=== PATIENT | female | born 1935 | race Caucasian/White ===

== ENCOUNTER 2017-01-12 08:00 | Outpatient (CLI) | payer MEDICARE, OTHER ==
[2017-01-12 19:25] LABS: BASOPHILS # (AUTO) 0.1 10^3/uL (0.0-0.1); BASOPHILS % (AUTO) 0.8 %; EOSINOPHILS # (AUTO) 0.1 10^3/uL (0.0-0.7); EOSINOPHILS % (AUTO) 1.5 %; HCT - HEMATOCRIT 38.7 % (37.0-47.0); LYMPHOCYTES # (AUTO) 1.5 10^3/uL (1.5-3.5); LYMPHOCYTES % (AUTO) 21.1 %; MEAN CORPUSCULAR HEMOGLOBIN 31.7 pg (27.0-31.0); MEAN CORPUSCULAR HGB CONC 33.5 g/dL (32.0-36.0); MEAN CORPUSCULAR VOLUME 94.7 fL (81.0-99.0); MEAN PLATELET VOLUME 8.2 fL (7.9-10.8); MONOCYTES # (AUTO) 0.5 10^3/uL (0.0-1.0); MONOCYTES % (AUTO) 7.7 %; NEUTROPHILS # (AUTO) 4.9 10^3/uL (1.5-6.6); NEUTROPHILS % (AUTO) 68.9 %; RED BLOOD COUNT 4.08 10^6/uL (4.20-5.40); RED CELL DISTRIBUTION WIDTH 13.1 % (12.0-15.0); UNCORRECTED WHITE BLOOD COUNT 7.1 x10^3/uL; WHITE BLOOD COUNT 7.1 x10^3/uL (4.8-10.8)
[2017-01-12 19:45] LABS: ALBUMIN/GLOBULIN RATIO 1.4 (1.0-2.2); BILIRUBIN,TOTAL 0.6 mg/dL (0.2-1.0); BUN - BLOOD UREA NITROGEN 15 mg/dL (6-20); CALCIUM 8.1 mg/dL (8.5-10.3); CARBON DIOXIDE - CO2 27 mmol/L (21-32); CHLORIDE 105 mmol/L (101-111); CREATININE 1.1 mg/dL (0.4-1.0); GFR - MDRD 48 (>89); GLUCOSE 90 mg/dL (70-100); POTASSIUM 3.2 mmol/L (3.5-5.0); SODIUM 141 mmol/L (135-145); TOTAL PROTEIN 6.7 g/dL (6.7-8.2)
[2017-01-12 19:52] LABS: THYROID STIMULATING HORMONE 0.66 uIU/mL (0.34-5.60)
== END 2017-01-12 08:01 | disposition home or self-care (01) ==
LOC: LAB.WCP 08:00
PROVIDERS: ATTEND Family Medicine
DX: R53.83 Other fatigue (principal); R41.3 Other amnesia
CPT/HCPCS: 36415; 80053; 82607; 84443; 85025

== ENCOUNTER 2017-03-25 15:59 | Outpatient (CLI) | payer MEDICARE, OTHER | END 2017-03-25 16:00 | disposition critical access hospital (66) | LOC: EMS 15:59 | PROVIDERS: ATTEND Surgery | DX: S01.112A Laceration without foreign body of left eyelid and periocular area, initial encounter (principal); W01.0XXA Fall on same level from slipping, tripping and stumbling without subsequent striking against object, initial encounter; Y92.038 Other place in apartment as the place of occurrence of the external cause | CPT/HCPCS: A0425; A0429 ==

== ENCOUNTER 2017-03-25 16:20 | Emergency (ER) | payer MEDICARE, OTHER ==
[2017-03-25] MEDS ORDERED: LIDOCAINE-EPINEPH-TETRACAINE 3 ML SYRINGE TOP STA (18:24)
[2017-03-25 19:05] VITALS: BP 163/88
--- NOTE | 2017-03-25 19:26 | CT Report ---
EXAM: CT HEAD EXAM DATE: 03/25/2017 06:46 PM. CLINICAL HISTORY: Fall. Left head injury. COMPARISON: 08/14/2007. TECHNIQUE: Multiaxial CT images were obtained from the foramen magnum to the vertex. Reformats: Coron al. IV contrast: None. In accordance with CT protocol optimization, one or more of the following dose reduction techniques w ere utilized for this exam: automated exposure control, adjustment of mA and/or KV based on patient s ize, or use of iterative reconstructive technique. FINDINGS: Parenchyma: No intraparenchymal hemorrhage. No evidence of mass, midline shift, or CT findings of acu te infarction. Moran-white differentiation is distinct. Mild chronic microangiopathic white matter ashwini nges are evident. Extraaxial Spaces: Normal for age. No subdural or epidural collections identified. Ventricles: The ventricles and cortical sulci are prominent, consistent with age-related tissue loss. Sinuses and orbits: Imaged paranasal sinuses, orbits, and mastoids show no significant abnormality. Bones: No evidence of fracture or calvarial defect. Other: Mild left foreign scalp hematoma. IMPRESSION: Generalized age-related cortical atrophic changes without evidence of acute intracranial abnormality. [facility] Referring Provider Line: [phone] SITE ID: [id number]
--- NOTE | 2017-03-25 19:29 | CT Report ---
EXAM: CT CERVICAL SPINE WITHOUT CONTRAST DATE: 03/25/2017 06:53 PM. HISTORY: Head injury with neck pain. COMPARISONS: None. TECHNIQUE: Thin-section axial images were acquired of the cervical spine without contrast. Post-proce ssing: Coronal and sagittal reformats. Other: None. In accordance with CT protocol optimization, one or more of the following dose reduction techniques w ere utilized for this exam: automated exposure control, adjustment of mA and/or KV based on patient s ize, or use of iterative reconstructive technique. FINDINGS: Alignment: No scoliosis or spondylolisthesis. Bones: No fracture or bone lesion. Interspace Levels/Facets: C1-C2: Anterior degenerative changes with surrounding mildly calcified pannus. C2-C3: Unremarkable. C3-C4: Moderate disk space narrowing. C4-C5: Advanced disk space narrowing with spurring. C5-C6: Advanced disk space narrowing with spurring and posterior disk/osteophyte protrusion. C6-C7: Advanced disk space narrowing with spurring. C7-T1: Unremarkable. Musculature: Normal. No fatty atrophy. Other: The paravertebral and prevertebral soft tissues are unremarkable. The lung apices are clear. IMPRESSION: 1. No acute cervical spine abnormalities. 2. Advanced multilevel degenerative disk disease. [facility] Referring Provider Line: [phone] SITE ID: [id number]
--- NOTE | 2017-03-25 19:32 | XRAY Report ---
EXAM: LEFT HAND RADIOGRAPHY EXAM DATE: 03/25/2017 06:56 PM. CLINICAL HISTORY: Hand injury after fall. COMPARISON: None. TECHNIQUE: 3 views. FINDINGS: Bones: Normal. No fractures or bone lesions. Joints: Spurring and sclerosis involving multiple IP joints, second through fourth MCP joints, first carpometacarpal joint, and scaphomultangular joint. No subluxations. Soft Tissues: Calcification in the triangular fibrocartilage. IMPRESSION: 1. No acute bony abnormalities identified. 2. Osteoarthritis. [facility] Referring Provider Line: [phone] SITE ID: [id number]
--- NOTE | 2017-03-25 19:51 | ED Physician Documentation ---
PD HPI Fall - Stated complaint Stated Complaint: GLF, EYE LAC, HAND LAC - Chief complaint Chief Complaint: Laceration - History obtained from History obtained from: Patient, Family - History of Present Illness Mechanism of injury: Tripped Where injury occurred: Home Timing - onset: Today (Just prior to arrival.) Injury(ies) location: Head, Left Hand Associated symptoms: No: LOC, Neck pain, Nausea / vomiting - Additional information Additional information: The patient is a pleasant 81-year-old female who tripped and fell on her driveway when getting out of her car less than one hour prior to arrival. She hit her head and her left hand. She denies loss of consciousness, and has been ambulatory since the incident occurred. She denies headache, neck pain, nausea or vomiting. Her medications include one baby aspirin daily. Tetanus status is up-to-date. Review of Systems Constitutional: denies: Fever Eyes: denies: Decreased vision Ears: denies: Tinnitus/ringing Nose: denies: Congestion Throat: denies: Sore throat Cardiac: denies: Chest pain / pressure Respiratory: denies: Dyspnea, Cough GI: denies: Abdominal Pain, Nausea, Vomiting : denies: Dysuria Skin: reports: Laceration (s) Musculoskeletal: reports: Extremity pain (left hand.). denies: Neck pain Neurologic: reports: Head injury. denies: Focal weakness, Numbness, Altered mental status, Headache, LOC PD PAST MEDICAL HISTORY - Past Medical History Respiratory: None Neuro: None Endocrine/Autoimmune: HyPOthyroidism Musculoskeletal: Chronic back pain - Present Medications Home Medications: Ambulatory Orders Medication Instructions Recorded Confirmed Aspirin 325 mg PO DAILY 03/25/17 Cholecalciferol (Vitamin D3) 3,000 03/25/17 [Vitamin D3] Diclofenac Sodium Dr [Voltaren] 75 mg PO BID 03/25/17 FLUoxetine [PROzac] 40 mg PO DAILY 03/25/17 Levothyroxine [Synthroid] 88 mcg PO DAILY 03/25/17 Losartan [Cozaar] 50 mg PO DAILY 03/25/17 Omeprazole [PriLOSEC] 20 mg PO DAILY 03/25/17 - Allergies Allergies/Adverse Reactions: Allergies Allergy/AdvReac Type Severity Reaction Status Date / Time No Known Drug Allergies Allergy Verified 03/25/17 16:27 - Living Situation Living Situation: reports: With spouse/s.o. Living Arrangement: reports: At home - Social History Does the pt smoke?: No - Immunizations Immunizations: TDAP current <10years PD ED PE NORMAL - Vitals Vital signs reviewed: Yes (hypertensive) - General General: Alert and oriented X 3, Well developed/nourished - HEENT HEENT: PERRL, EOMI, Ears normal, Pharynx benign, Other (2.5 cm laceration on the left side of the forehead, with a surrounding soft tissue crush injury. No bony step-off palpated.) - Neck Neck: No bony TTP, No JVD - Cardiac Cardiac: RRR - Respiratory Respiratory: No respiratory distress, Clear bilaterally, Other (No chest wall tenderness to palpation.) - Abdomen Abdomen: Soft, Non tender - Back Back: No spinal TTP - Derm Derm: No rash - Extremities Extremities: No deformity, Normal ROM s pain, No edema, Other (There is a large skin tear over the dorsum of the left hand, approximately 9 cm in length. She has full flexion and extension of the digits in her left hand, and no tenderness with axial loading on the digits. Distal neurovascular is intact.) - Neuro Neuro: Alert and oriented X 3, No motor deficit, No sensory deficit, Normal speech Eye Opening: Spontaneous Motor: Obeys Commands Verbal: Oriented GCS Score: 15 Results - Vitals Vitals: Oxygen O2 Source Room air - Rads (name of study) Head CT Radiology: Prelim report reviewed, EMP read contemporaneously, See rad report ( Generalized age-related cortical atrophic changes without evidence of acute intracranial abnormality.) CT Cervical Spine Radiology: Prelim report reviewed, EMP read contemporaneously, See rad report ( No acute cervical spine abnormalities. Advanced multilevel degenerative disc disease.) Left hand Radiology: Prelim report reviewed, EMP read contemporaneously, See rad report ( No acute bony abnormalities identified. Osteoarthritis.) Procedures - Laceration (location) forehead lac Length in cm: 2.5 Wound type: Irregular, Into subcut fat Neurovascular status: Sensory intact, Vascular intact Anesthesia: Lidocaine 1% with epi Wound Preparation: Hibiclens, Irrigated copiously NS, Wound explored. No: FB identified Skin layer closure: Nylon, Interrupted, Size #-0 - enter number (5), Sutures - enter # (5) Other: Patient tolerated well, No complications, Neurovascular intact, Dressing applied, Tetanus UTD Complexity: Simple left hand Length in cm: 9 Wound type: Flap Neurovascular status: Sensory intact, Motor intact, Vascular intact Tendon involvement: Tendon intact Anesthesia: LET Wound Preparation: Hibiclens, Irrigated copiously NS, Wound explored, To the base. No: FB identified Skin layer closure: Steri strips Other: Patient tolerated well, No complications, Neurovascular intact, Dressing applied, Tetanus UTD Complexity: Simple PD MEDICAL DECISION MAKING - ED course Complexity details: reviewed results, re-evaluated patient, considered differential, d/w patient, d/w family ED course: The patient's presentation is significant for a trip and fall, with associated injuries to the left forehead and the left hand. Head CT and cervical spine CT revealed no acute abnormalities. X-ray of the left hand reveals no acute bony abnormality. Treatment in the emergency department included suture repair of the forehead laceration after topical anesthesia using 1% lidocaine with epinephrine, and after thorough wound cleaning and exploration. The skin tear on the dorsum of the left hand was repaired with Steri-Strips after thorough cleaning. I discussed with the patient and her family members the expected course of healing, appropriate wound care and timing for suture removal, as well as potentially worrisome signs or symptoms that should prompt reevaluation in the emergency department. Departure - Departure Disposition: 01 Home, Self Care Clinical Impression: Fall Qualifiers: Encounter type: initial encounter Qualified Code(s): W19.XXXA - Unspecified fall, initial encounter Laceration of forehead Qualifiers: Encounter type: initial encounter Qualified Code(s): S01.81XA - Laceration without foreign body of other part of head, initial encounter Skin tear of left hand without complication Qualifiers: Encounter type: initial encounter Qualified Code(s): S61.412A - Laceration without foreign body of left hand, initial encounter Condition: Stable Instructions: ED Laceration All Follow-Up: Gorge Steel DO [Provider Admit Priv/Credential] - Comments: Keep the wounds clean, and apply gauze dressings daily. You can use Tylenol if needed for discomfort. Follow-up for suture removal in about 12 days. Call to schedule appointment. Return to the emergency department if you develop any sign of infection, increasing headache, or otherwise worsening symptoms. Discharge Date/Time: 03/25/17 20:05
== END 2017-03-25 20:05 | disposition home or self-care (01) ==
LOC: EDUNIT# → ED 16:20
DX: S01.81XA Laceration without foreign body of other part of head, initial encounter (principal); S61.412A Laceration without foreign body of left hand, initial encounter; W01.198A Fall on same level from slipping, tripping and stumbling with subsequent striking against other object, initial encounter; Y92.008 Other place in unspecified non-institutional (private) residence as the place of occurrence of the external cause; E03.9 Hypothyroidism, unspecified
CPT/HCPCS: 12011; 70450; 72125; 99283

== ENCOUNTER 2017-05-04 15:10 | Outpatient (CLI) | payer MEDICARE, OTHER ==
[2017-05-04 19:01] LABS: CALCIUM 9.3 mg/dL (8.5-10.3); CREATININE 1.1 mg/dL (0.4-1.0)
== END 2017-05-04 15:11 | disposition home or self-care (01) ==
LOC: LAB.WCP 15:10
PROVIDERS: ATTEND Family Medicine
DX: E87.6 Hypokalemia (principal)
CPT/HCPCS: 36415; 80048

== ENCOUNTER 2017-09-01 16:13 | Outpatient (CLI) | payer MEDICARE, OTHER | END 2017-09-01 16:14 | disposition critical access hospital (66) | LOC: EMS 16:13 | PROVIDERS: ATTEND Surgery | DX: R42 Dizziness and giddiness (principal); R53.1 Weakness; M54.2 Cervicalgia; W10.1XXA Fall (on)(from) sidewalk curb, initial encounter; Y92.038 Other place in apartment as the place of occurrence of the external cause | CPT/HCPCS: A0425; A0427 ==

== ENCOUNTER 2017-09-01 16:40 | Emergency (ER) | payer MEDICARE, OTHER ==
--- NOTE | 2017-09-01 17:00 | ED Physician Documentation ---
PD HPI HEAD INJURY - Stated complaint Stated Complaint: GLF, NECK PX - Chief complaint Chief Complaint: Trauma Hd/Nk - History obtained from History obtained from: Patient, Family, EMS - History of Present Illness Mechanism of head injury: Fell (She was out doing yard work and suddenly had a we inside she tripped and fell going down and drying her head and neck without loss of consciousness. She has not anticoagulated except for aspirin. No injuries below the neck.) Review of Systems Ten Systems: 10 systems reviewed and negative Constitutional: denies: Fever, Chills Cardiac: denies: Chest pain / pressure, Palpitations Respiratory: denies: Dyspnea, Cough PD PAST MEDICAL HISTORY - Past Medical History Respiratory: None Endocrine/Autoimmune: HyPOthyroidism Musculoskeletal: Chronic back pain - Present Medications Home Medications: Ambulatory Orders Medication Instructions Recorded Confirmed Aspirin 325 mg PO DAILY 03/25/17 Cholecalciferol (Vitamin D3) 3,000 03/25/17 [Vitamin D3] Diclofenac Sodium Dr [Voltaren] 75 mg PO BID 03/25/17 FLUoxetine [PROzac] 40 mg PO DAILY 03/25/17 Levothyroxine [Synthroid] 88 mcg PO DAILY 03/25/17 Losartan [Cozaar] 50 mg PO DAILY 03/25/17 Omeprazole [PriLOSEC] 20 mg PO DAILY 03/25/17 - Allergies Allergies/Adverse Reactions: Allergies Allergy/AdvReac Type Severity Reaction Status Date / Time No Known Drug Allergies Allergy Verified 03/25/17 16:27 - Social History Does the pt smoke?: No Smoking Status: Never smoker - Immunizations Immunizations: TDAP current <10years PD ED PE NORMAL - Vitals Vital signs reviewed: Yes - General General: Alert and oriented X 3, No acute distress - HEENT HEENT: PERRL, EOMI - Neck Neck: Other (She is in a c-collar which is maintained pending imaging, she does have mild upper C-spine tenderness.) - Cardiac Cardiac: RRR, No murmur - Respiratory Respiratory: No respiratory distress, Clear bilaterally - Abdomen Abdomen: Normal bowel sounds, Soft, Non tender - Back Back: No CVA TTP, No spinal TTP - Derm Derm: Normal color, Warm and dry - Extremities Extremities: No deformity, No tenderness to palpate - Neuro Neuro: Alert and oriented X 3, No motor deficit, No sensory deficit, Normal speech Results - Vitals Vitals: Vital Signs - 24 hr 09/01/17 09/01/17 16:42 16:57 Temperature 36.5 C Heart Rate 50 L 70 Respiratory 18 18 Rate Blood Pressure 105/66 110/66 O2 Saturation 97 98 Oxygen O2 Source Room air - Rads (name of study) CT Cspine Radiology: EMP read contemporaneously (DJD no frx) Ct head Radiology: EMP read contemporaneously (NAD) PD MEDICAL DECISION MAKING - ED course ED course: 82-year-old woman after ground-level fall at home while gardening, does have some neck tenderness and CT imaging of the head and neck were done without relevant findings. She declined prescription pain medication and had no other complaints. - Sepsis Event Vital Signs: Vital Signs - 24 hr 09/01/17 09/01/17 16:42 16:57 Temperature 36.5 C Heart Rate 50 L 70 Respiratory 18 18 Rate Blood Pressure 105/66 110/66 O2 Saturation 97 98 Oxygen O2 Source Room air Departure - Departure Disposition: 01 Home, Self Care Clinical Impression: Fall Qualifiers: Encounter type: initial encounter Qualified Code(s): W19.XXXA - Unspecified fall, initial encounter Injury of head and neck Qualifiers: Encounter type: initial encounter Qualified Code(s): S09.90XA - Unspecified injury of head, initial encounter; S19.9XXA - Unspecified injury of neck, initial encounter; S19.9XXA - Unspecified injury of neck, initial encounter Condition: Good Record reviewed to determine appropriate education?: Yes Instructions: ED Head Injury Closed Comments: Call your doctor to arrange a follow-up appointment, make the next available appointment. In the interim, return anytime if worse or if new symptoms develop.
--- NOTE | 2017-09-01 18:05 | CT Report ---
Procedure Date: 09/01/2017 Accession Number: [id number] / [id number] Procedure: CT - Head W/O CPT Code: FULL RESULT: EXAM: CT HEAD EXAM DATE: 09/01/2017 05:27 PM. CLINICAL HISTORY: Head/neck inj, glf. COMPARISON: CERVICAL SPINE W/O 03/25/2017 HEAD W/O 03/25/2017. TECHNIQUE: Multiaxial CT images were obtained from the foramen magnum to the vertex. Reformats: Coronal. IV contrast: None. In accordance with CT protocol optimization, one or more of the following dose reduction techniques were utilized for this exam: automated exposure control, adjustment of mA and/or KV based on patient size, or use of iterative reconstructive technique. FINDINGS: Parenchyma: No intracranial hemorrhage. No evidence of mass, midline shift or CT findings of acute territorial infarction. Moran-white differentiation is distinct. Hypoattenuation to the deep white matter likely reflects chronic mitral angiopathic ischemic change. 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 Extraaxial Spaces: No subdural or epidural collections identified. Ventricles: No hydrocephalus Sinuses: Imaged paranasal sinuses, orbits, and mastoids show no significant abnormality. Bones: No evidence of acute fracture or calvarial defect. Other: None. IMPRESSION: No acute intracranial abnormalities. [facility]
--- NOTE | 2017-09-01 18:18 | CT Report ---
Procedure Date: 09/01/2017 Accession Number: [id number] / [id number] Procedure: CT - Cervical Spine W/O CPT Code: FULL RESULT: EXAM: CT CERVICAL SPINE WITHOUT CONTRAST DATE: 09/01/2017 05:42 PM. HISTORY: Head/neck inj, glf. COMPARISONS: 03/25/17. TECHNIQUE: Thin-section axial images were acquired of the cervical spine without contrast. Post-processing: Coronal and sagittal reformats. Other: None. In accordance with CT protocol optimization, one or more of the following dose reduction techniques were utilized for this exam: automated exposure control, adjustment of mA and/or KV based on patient size, or use of iterative reconstructive technique. FINDINGS: Alignment: Within normal limits. No scoliosis or spondylolisthesis. Bones: No acute fractures. Severe multilevel disk space narrowing, worse from C4-C7. Effacement of the anterior thecal sac by multilevel posterior disk osteophyte complexes without high-grade spinal canal narrowing. Spinal Canal: Effacement of the anterior thecal sac by multilevel posterior disk osteophyte complexes without high-grade spinal canal narrowing. Other: The paravertebral and prevertebral soft tissues are unremarkable. Visualized thyroid is unremarkable. The partially imaged lung apices are clear. IMPRESSION: No acute fractures. Redemonstration severe multilevel degenerative disk disease. [facility]
[2017-09-01 18:45] VITALS: BP 139/84
== END 2017-09-01 18:44 | disposition home or self-care (01) ==
LOC: EDUNIT# → ED 16:40
DX: S09.90XA Unspecified injury of head, initial encounter (principal); S19.9XXA Unspecified injury of neck, initial encounter; W01.0XXA Fall on same level from slipping, tripping and stumbling without subsequent striking against object, initial encounter; Y93.H2 Activity, gardening and landscaping; Y92.096 Garden or yard of other non-institutional residence as the place of occurrence of the external cause; Z79.82 Long term (current) use of aspirin
CPT/HCPCS: 70450; 72125; 99283

== ENCOUNTER 2017-10-12 13:52 | Outpatient (CLI) | payer MEDICARE, OTHER ==
--- NOTE | 2017-10-12 15:40 | XRAY Report ---
Procedure Date: 10/12/2017 Accession Number: [id number] / [id number] Procedure: XRN - Knee 3 View RT CPT Code: FULL RESULT: EXAM: RIGHT KNEE RADIOGRAPHY. EXAM DATE: 10/12/2017 02:16 PM. CLINICAL HISTORY: Knee pain, right. COMPARISON: None. TECHNIQUE: 3 views. FINDINGS: Examination is limited by suboptimal lateral view. Bones: No fractures or bone lesions. Joints: Moderate tricompartmental degenerative changes with joint space loss and marginal osteophytosis. No joint effusion. Soft Tissues: Normal. No soft tissue swelling. IMPRESSION: Tricompartmental osteoarthrosis. [facility]
== END 2017-10-12 13:53 | disposition home or self-care (01) ==
LOC: DI.N 13:52
PROVIDERS: ATTEND Family Medicine
DX: M25.561 Pain in right knee (principal); M17.11 Unilateral primary osteoarthritis, right knee

== ENCOUNTER 2018-05-26 08:00 | Outpatient (CLI) | payer MEDICARE, OTHER | END 2018-05-26 23:59 | LOC: LAB.WCP 08:00 | PROVIDERS: ATTEND Nurse Practitioner | DX: N39.0 Urinary tract infection, site not specified (principal) | CPT/HCPCS: 87086 ==

== ENCOUNTER 2018-05-28 17:02 | Emergency (ER) | payer MEDICARE, OTHER ==
--- NOTE | 2018-05-28 17:26 | ED Physician Documentation ---
History of Present Illness - Stated complaint Stated Complaint: FEMALE - Chief complaint Chief Complaint: General - History obtained from History obtained from: Patient - Additonal information Additional information: Patient is a 82-year-old female presenting with concern for pelvic pressure and pain for which she has seen her primary care physician. Her primary care physician took a urine sample and start her on ciprofloxacin for a possible urinary tract infection, although patient denies hematuria, dysuria, or suprapubic abdominal pain. Primary care physician reportedly also had concern f or possible bladder prolapse, but today, patient believes she explains vaginal bleeding.Patient denies other abdominal pain, vaginal discharge, fever. Patient is currently awaiting a referral for PUBLIC RELATIONS COORDINATOR. No improving or worsening factors noted. Review of Systems Constitutional: denies: Fever : reports: Vaginal bleeding PD PAST MEDICAL HISTORY - Past Medical History Respiratory: None Endocrine/Autoimmune: HyPOthyroidism Musculoskeletal: Chronic back pain - Present Medications Home Medications: Ambulatory Orders Medication Instructions Recorded Confirmed Cholecalciferol (Vitamin D3) 3,000 03/25/17 [Vitamin D3] RX: Aspirin 325 mg PO DAILY 03/25/17 RX: Diclofenac Sodium Dr [Voltaren] 75 mg PO BID 03/25/17 RX: FLUoxetine [PROzac] 40 mg PO DAILY 03/25/17 RX: Levothyroxine [Synthroid] 88 mcg PO DAILY 03/25/17 RX: Losartan [Cozaar] 50 mg PO DAILY 03/25/17 RX: Omeprazole [PriLOSEC] 20 mg PO DAILY 03/25/17 - Allergies Allergies/Adverse Reactions: Allergies Allergy/AdvReac Type Severity Reaction Status Date / Time No Known Drug Allergies Allergy Verified 03/25/17 16:27 - Social History Does the pt smoke?: No Smoking Status: Never smoker - Immunizations Immunizations: TDAP current <10years PD ED PE NORMAL - General General: Alert and oriented X 3, No acute distress, Well developed/nourished - HEENT HEENT: Atraumatic - Cardiac Cardiac: RRR, No murmur - Respiratory Respiratory: No respiratory distress, Clear bilaterally - Abdomen Abdomen: Normal bowel sounds, Soft, Non tender, Non distended - Female Female : Other (External vaginal exam unremarkable with no obvious lesions, masses, or rash. Extremely pronounced cervical prolapse through vaginal vault with dark colored, friable cervical mucosa present.) - Derm Derm: Normal color, Warm and dry, No rash - Extremities Extremities: No deformity, No tenderness to palpate - Neuro Neuro: Alert and oriented X 3, No motor deficit, No sensory deficit - Psych Psych: Normal mood, Normal affect Results - Vitals Vitals: Vital Signs - 24 hr 05/28/18 05/28/18 17:11 18:21 Temperature 36.3 C L Heart Rate 57 L 70 Respiratory 14 16 Rate Blood Pressure 98/79 149/98 H O2 Saturation 98 96 Oxygen O2 Source Room air PD MEDICAL DECISION MAKING - ED course Complexity details: re-evaluated patient, considered differential, d/w patient, d/w family, d/w home care consultant ED course: Patient presenting with new onset vaginal bleeding. Patient was recently seen by her primary care physician and diagnosed with a UTI following a urine sample and started on ciprofloxacin. Patient has been compliant with this medication and denies urinary symptoms and at this time, do not have high suspicion for refractory UTI or pyelonephritis. Patient reports possible bladder prolapse, but on exam, visualized significant cervical prolapse and feel this is likely the cause of her discomfort and vaginal bleeding. Do not have high suspicion for STDs, other vaginal infections, ovarian pathology such as cyst or torsion at this time. Based on symptoms and exam, also have low suspicion for acute intra-abdominal pathology currently.Do not feel patient requires further interventions in the ED.Spoke with PUBLIC RELATIONS COORDINATOR healthcare economics consultant, who said that patient may call the office tomorrow to schedule follow-up appointment later in the week. Advised patient and family of this plan, as well as strict return precautions. Patient family voiced understanding and are comfortable with discharge. Departure - Departure Disposition: 01 Home, Self Care Clinical Impression: Cervical prolapse Condition: Good Follow-Up: Beni Gavin MD [Provider Admit Priv/Credential] - Tomorrow Comments: Please continue any home medications as previously instructed, including antibiotic for possible bladder infection. Recommend use of menstrual pad as needed to help control bleeding. Please contact PUBLIC RELATIONS COORDINATOR tomorrow to set up outpatient appointment for later this week. Return to ED sooner if explains worsening symptoms or other concerns. Discharge Date/Time: 05/28/18 18:23
[2018-05-28 18:22] VITALS: BP 149/98
== END 2018-05-28 18:23 | disposition home or self-care (01) ==
LOC: ED 17:02
DX: N81.2 Incomplete uterovaginal prolapse (principal); Z79.82 Long term (current) use of aspirin
CPT/HCPCS: 99283

== ENCOUNTER 2018-09-04 10:29 | Outpatient (CLI) | payer MEDICARE, OTHER | END 2018-09-04 23:59 | disposition home or self-care (01) | LOC: LAB.R 10:29 | PROVIDERS: ATTEND Family Medicine | DX: N39.0 Urinary tract infection, site not specified (principal) | CPT/HCPCS: 87086; 87181 ==

== ENCOUNTER 2019-04-18 08:00 | Outpatient (CLI) | payer MEDICARE, OTHER | END 2019-04-18 23:59 | disposition home or self-care (01) | LOC: LAB.R 08:00 | PROVIDERS: ATTEND Family Medicine | DX: N39.0 Urinary tract infection, site not specified (principal) | CPT/HCPCS: 81002; 87086; 87181 ==

== ENCOUNTER 2019-05-17 08:00 | Outpatient (CLI) | payer MEDICARE, OTHER ==
[2019-05-17 18:24] LABS: BASOPHILS # (AUTO) 0.1 10^3/uL (0.0-0.1); BASOPHILS % (AUTO) 1.1 %; EOSINOPHILS # (AUTO) 0.1 10^3/uL (0.0-0.7); EOSINOPHILS % (AUTO) 2.3 %; HGB - HEMOGLOBIN 13.3 g/dL (12.0-16.0); LYMPHOCYTES # (AUTO) 1.3 10^3/uL (1.5-3.5); LYMPHOCYTES % (AUTO) 23.5 %; MEAN CORPUSCULAR HEMOGLOBIN 32.8 pg (27.0-31.0); MEAN CORPUSCULAR VOLUME 99.3 fL (81.0-99.0); MEAN PLATELET VOLUME 10.4 fL (7.9-10.8); MONOCYTES # (AUTO) 0.6 10^3/uL (0.0-1.0); NEUTROPHILS # (AUTO) 3.5 10^3/uL (1.5-6.6); NEUTROPHILS % (AUTO) 61.7 %; PLT - PLATELET COUNT 227 10^3/uL (130-450); RED BLOOD COUNT 4.06 10^6/uL (4.20-5.40); RED CELL DISTRIBUTION WIDTH 12.4 % (12.0-15.0); WHITE BLOOD COUNT 5.7 x10^3/uL (4.8-10.8)
[2019-05-17 18:42] LABS: ALBUMIN 4.1 g/dL (3.2-5.5); ALBUMIN/GLOBULIN RATIO 1.4 (1.0-2.2); ALKALINE PHOSPHATASE 70 IU/L (42-121); ALT ALANINE AMINOTRANSFERASE 12 IU/L (10-60); AST ASPARTATE AMINOTRANSFERASE 17 IU/L (10-42); BILIRUBIN,TOTAL 0.9 mg/dL (0.2-1.0); BUN - BLOOD UREA NITROGEN 30 mg/dL (6-20); CALCIUM 9.5 mg/dL (8.5-10.3); CARBON DIOXIDE - CO2 28 mmol/L (21-32); CHLORIDE 100 mmol/L (101-111); CHOL/HDL RATIO 2.2 (<4.4); CHOLESTEROL 177 mg/dL; CREATININE 1.3 mg/dL (0.4-1.0); GFR - MDRD 39 (>89); GLUCOSE 91 mg/dL (70-100); HDL CHOLESTEROL 81 mg/dL; LDL CHOLESTEROL,CALCULATED 76 mg/dL; LDL/HDL RATIO 0.9 (<4.4); SODIUM 136 mmol/L (135-145); VLDL CHOLESTEROL 20 mg/dL
== END 2019-05-17 23:59 | disposition home or self-care (01) ==
LOC: LAB.WCP 08:00
PROVIDERS: ATTEND Family Medicine
DX: E03.9 Hypothyroidism, unspecified (principal); I10 Essential (primary) hypertension; I63.9 Cerebral infarction, unspecified
CPT/HCPCS: 36415; 80053; 80061; 83721; 84443; 85025

== ENCOUNTER 2019-07-12 13:45 | Outpatient (CLI) | payer MEDICARE, OTHER | END 2019-07-12 23:59 | disposition home or self-care (01) | LOC: LAB.R 13:45 | PROVIDERS: ATTEND Family Medicine | DX: N39.0 Urinary tract infection, site not specified (principal) | CPT/HCPCS: 87086 ==

== ENCOUNTER 2019-07-31 08:12 | Outpatient (CLI) | payer MEDICARE, OTHER ==
[2019-07-31] MEDS ORDERED: IOVERSOL 320 100 ML VIAL IVP ONE ×2 (08:26→11:34)
[2019-07-31] MEDS ORDERED: IOVERSOL 320 50 ML VIAL ONE (08:26)
[2019-07-31 08:56] LABS: CREATININE 1.1 mg/dL (0.4-1.0)
--- NOTE | 2019-07-31 09:24 | XRAY Report ---
Reason: ABD PAIN, NIGHT SWEATS Procedure Date: 07/31/2019 Accession Number: [id number] / [id number] Procedure: XR - Chest 2 View X-Ray CPT Code: 89812 Final Report FULL RESULT: PROCEDURE: Chest 2 View X-Ray INDICATIONS: ABD PAIN, NIGHT SWEATS TECHNIQUE: 1 view(s) of the chest. COMPARISON: Prior lumbosacral spine plain films that include the lower chest abdomen and much of the pelvis dated 03/18/2017 reviewed. FINDINGS: Surgical changes and devices: None. Lungs and pleura: No pleural effusions or pneumothorax. Lungs are clear except for a mild interstitial prominence previously present. Mediastinum: Mediastinal contours are normal. Heart size is normal. Bones and chest wall: No suspicious bony abnormalities. Note is made of mild convex rightward scoliosis at the low thoracic spine, associated with convex leftward scoliosis more inferiorly from prior LS spine plain film imaging. Soft tissues appear unremarkable, except for a rounded peripherally calcified structure at the medial left upper quadrant, previously also present virtually identical in appearance to the plain film imaging that included that area from February 2017.. IMPRESSION: 1. Chronic mild interstitial prominence. No pneumonia found. No adenopathy suspected. 2. Rounded peripherally calcified structure superior aspect of the medial left upper quadrant. This is identical in appearance to that present on the LS-spine plain film imaging from February 2017 and measures up to 4.4 cm in maximal dimension. Uncertain etiology, potentially an aneurysm by appearance. Please correlate for whether prior CT scan that would include this area has been performed for this patient elsewhere. Follow-up by targeted ultrasound scanning in this area likely is warranted and if the structure cannot be clearly identified and characterized follow-up by contrast-enhanced CT scanning may become necessary. Reviewed by: Kimani Fuller MD on 07/31/2019 9:22 AM PDT Approved by: Kimani Fuller MD on 07/31/2019 9:22 AM PDT Station ID: [id number]
[2019-07-31] MEDS ORDERED: IOVERSOL 320 50 ML VIAL PO ONE (11:34)
--- NOTE | 2019-07-31 15:01 | CT Report ---
Reason: ABD PAIN, NIGHT SWEATS Procedure Date: 07/31/2019 Accession Number: [id number] / [id number] Procedure: CT - Abdomen/Pelvis W CPT Code: Final Report FULL RESULT: PROCEDURE: Abdomen/Pelvis W INDICATIONS: ABD PAIN, NIGHT SWEATS CONTRAST: IV CONTRAST: Optiray 320 ml: 100 PO CONTRAST: Optiray 320 ml50 TECHNIQUE: After the administration of oral and intravenous contrast, 5 mm thick sections acquired from the diaphragms to the symphysis. 5 mm thick coronal and sagittal reformats were acquired. For radiation dose reduction, the following was used: automated exposure control, adjustment of mA and/or kV according to patient size. COMPARISON: 09/07/2008. FINDINGS: Image quality: Excellent. ABDOMEN: Lung bases: Lung bases are clear. Heart size is normal. Solid organs: Liver and spleen are normal in size and enhancement. Again noted is a peripherally calcified splenic cyst measuring 4.3 cm in diameter. It is unchanged in size. The peripheral calcifications have increased. It is a benign lesion. Gallbladder is surgically absent Biliary system is non dilated. Pancreas enhances normally. No adrenal nodules. Kidneys demonstrate normal size and enhancement, without hydronephrosis. Peritoneum and bowel: Bowel loops demonstrate normal wall thickness and caliber. No free fluid or air. Nodes and vessels: No retroperitoneal or mesenteric adenopathy by size criteria. Aorta and inferior vena cava are normal in size. Miscellaneous: No ventral hernias. PELVIS: Genitourinary: Bladder wall thickness is normal. Miscellaneous: No inguinal hernias or adenopathy. Uterus is surgically absent Bones: No suspicious bony lesions. No vertebral body compression fractures. Canal stenosis is at least moderate at L3-L4 and severe at L4-L5. Exuberant multilevel facet arthropathy. IMPRESSION: 1. No evidence acute abdominal process. 2. Unchanged benign splenic cyst. 3. Prior hysterectomy and cholecystectomy. 4. Sigmoid diverticulosis. 5. Canal stenosis is at least moderate at L3-L4 and severe at L4-L5. Reviewed by: Gabriel Lozano MD on 07/31/2019 2:31 PM PDT Approved by: Gabriel Lozano MD on 07/31/2019 2:31 PM PDT Station ID: [id number]
== END 2019-07-31 08:13 | disposition home or self-care (01) ==
LOC: DI 08:12
PROVIDERS: ATTEND Family Medicine
DX: R10.9 Unspecified abdominal pain (principal); R61 Generalized hyperhidrosis; D73.4 Cyst of spleen; K57.30 Diverticulosis of large intestine without perforation or abscess without bleeding; Z90.49 Acquired absence of other specified parts of digestive tract; Z90.710 Acquired absence of both cervix and uterus
CPT/HCPCS: 36415; 71046; 74177; 82565; Q9967

== ENCOUNTER 2020-04-04 08:00 | Outpatient (CLI) | payer MEDICARE, OTHER ==
[2020-04-04 18:14] LABS: BASOPHILS # (AUTO) 0.1 10^3/uL (0.0-0.1); EOSINOPHILS # (AUTO) 0.2 10^3/uL (0.0-0.7); EOSINOPHILS % (AUTO) 3.7 %; LYMPHOCYTES # (AUTO) 1.6 10^3/uL (1.5-3.5); LYMPHOCYTES % (AUTO) 30.8 %; MEAN CORPUSCULAR HEMOGLOBIN 32.3 pg (27.0-31.0); MEAN CORPUSCULAR HGB CONC 32.3 g/dL (32.0-36.0); MEAN PLATELET VOLUME 10.1 fL (7.9-10.8); MONOCYTES # (AUTO) 0.5 10^3/uL (0.0-1.0); MONOCYTES % (AUTO) 9.4 %; NEUTROPHILS # (AUTO) 2.8 10^3/uL (1.5-6.6); NEUTROPHILS % (AUTO) 54.7 %; PLT - PLATELET COUNT 257 10^3/uL (130-450); RED BLOOD COUNT 4.34 10^6/uL (4.20-5.40); RED CELL DISTRIBUTION WIDTH 12.2 % (12.0-15.0); WHITE BLOOD COUNT 5.2 x10^3/uL (4.8-10.8)
[2020-04-04 18:29] LABS: ALBUMIN 4.1 g/dL (3.2-5.5); ALBUMIN/GLOBULIN RATIO 1.6 (1.0-2.2); ALKALINE PHOSPHATASE 97 IU/L (42-121); ALT ALANINE AMINOTRANSFERASE 11 IU/L (10-60); AST ASPARTATE AMINOTRANSFERASE 19 IU/L (10-42); BILIRUBIN,TOTAL 0.7 mg/dL (0.2-1.0); BUN - BLOOD UREA NITROGEN 23 mg/dL (6-20); CALCIUM 9.3 mg/dL (8.5-10.3); CARBON DIOXIDE - CO2 28 mmol/L (21-32); CHLORIDE 101 mmol/L (101-111); CHOL/HDL RATIO 2.5 (<4.4); CHOLESTEROL 185 mg/dL; CREATININE 1.3 mg/dL (0.4-1.0); GLUCOSE 99 mg/dL (70-100); HDL CHOLESTEROL 74 mg/dL; LDL CHOLESTEROL,CALCULATED 89 mg/dL; LDL/HDL RATIO 1.2 (<4.4); TOTAL PROTEIN 6.6 g/dL (6.7-8.2); URIC ACID 7.3 mg/dL (2.6-7.2); VLDL CHOLESTEROL 22 mg/dL
[2020-04-04 19:07] LABS: RHEUMATOID FACTOR NEGATIVE (Negative)
[2020-04-04 19:08] LABS: CRP - C-REACTIVE PROTEIN < 1.0 mg/dL (0-1.0)
[2020-04-04 19:22] LABS: FREE T4 (FREE THYROXINE) 0.8 ng/dL (0.58-1.64)
== END 2020-04-04 23:59 | disposition home or self-care (01) ==
LOC: LAB.WCP 08:00
PROVIDERS: ATTEND Family Medicine
DX: I10 Essential (primary) hypertension (principal); E03.9 Hypothyroidism, unspecified; M25.50 Pain in unspecified joint
CPT/HCPCS: 36415; 80053; 80061; 83721; 84439; 84443; 84550; 85025; 85651; 86140; 86430

== ENCOUNTER 2020-08-18 09:44 | Outpatient (CLI) | payer MEDICARE, OTHER ==
--- NOTE | 2020-08-18 13:57 | XRAY Report ---
PROCEDURE: Knee 4 View BILAT INDICATIONS: ARTHRITIS, BILATERAL KNEES TECHNIQUE: 4 views of the bilateral knee(s) were acquired. COMPARISON: X-ray right knee 10/12/2017 FINDINGS: Bones: No fractures or dislocations. No suspicious bony lesions. Right: Chondrocalcinosis is present. There is moderate to severe medial and moderate lateral and miranda llofemoral compartment narrowing. It is noted that lateral compartment narrowing becomes severe with weightbearing. This is progressive compared to prior exam. Periarticular osteophytes are present. No erosions. Left: Chondrocalcinosis is present. Moderate to severe lateral and moderate medial and patellofemoral compartment narrowing. Particular osteophytes are present. No erosions. Soft tissues: Minimal to mild bilateral effusions, right greater than left. No suspicious soft tissue calcifications. IMPRESSION: 1. Tricompartmental changes bilaterally most severe on the right and progressive compared to prior ex am, most consistent with arthritis. Reviewed by: Sherry Azar MD on 08/18/2020 1:55 PM PDT Approved by: Sherry Azar MD on 08/18/2020 1:55 PM PDT Station ID: [id number]
== END 2020-08-18 23:59 | disposition home or self-care (01) ==
LOC: DI.N 09:44
PROVIDERS: ATTEND Orthopaedic Surgery
DX: M17.0 Bilateral primary osteoarthritis of knee (principal)

== ENCOUNTER 2020-12-14 14:16 | Outpatient (CLI) | payer MEDICARE, OTHER | END 2020-12-14 14:17 | disposition critical access hospital (66) | LOC: EMS 14:16 | DX: R10.9 Unspecified abdominal pain (principal); R11.0 Nausea; R07.1 Chest pain on breathing | CPT/HCPCS: A0425; A0427 ==

== ENCOUNTER 2020-12-14 15:10 | Emergency (ER) | payer MEDICARE, OTHER ==
--- NOTE | 2020-12-14 15:20 | ED Physician Documentation ---
PD HPI ABD PAIN - Stated complaint Stated Complaint: SOA - History obtained from History obtained from: Patient - Additional information Additional information: This is an 85-year-old woman with history of hypertension but otherwise very hea lthy. She developed central abdominal pain yesterday associated with nausea and vomiting. No real changes to her bowel movements but noting that she has chronic constipation and/or diarrhea. Today became more short of breath. She was still nauseous this morning but subsequently the nausea went away. Now she has central chest pain and just feels short of breath. There is no associated cough, fevers, pedal edema, calf pain. She always has some leg pain which is chronic and unexplained. Review of Systems Ten Systems: 10 systems reviewed and negative Constitutional: denies: Fever, Chills, Myalgias, Fatigue Cardiac: reports: Chest pain / pressure. denies: Palpitations Respiratory: reports: Dyspnea. denies: Cough PD PAST MEDICAL HISTORY - Past Medical History Respiratory: None Endocrine/Autoimmune: HyPOthyroidism Musculoskeletal: Chronic back pain - Past Surgical History /PATHOLOGY TECHNOLOGIST: Hysterectomy - Present Medications Home Medications: Ambulatory Orders Medication Instructions Recorded Confirmed Aspirin 325 mg PO DAILY 03/25/17 Cholecalciferol (Vitamin D3) 3,000 03/25/17 [Vitamin D3] Diclofenac Sodium Dr [Voltaren] 75 mg PO BID 03/25/17 FLUoxetine [PROzac] 40 mg PO DAILY 03/25/17 Levothyroxine [Synthroid] 88 mcg PO DAILY 03/25/17 Losartan [Cozaar] 50 mg PO DAILY 03/25/17 Omeprazole [PriLOSEC] 20 mg PO DAILY 03/25/17 Propranolol [Inderal] 10 mg PO BID #60 tablet 12/14/20 - Allergies Allergies/Adverse Reactions: Allergies Allergy/AdvReac Type Severity Reaction Status Date / Time No Known Drug Allergies Allergy Verified 03/25/17 16:27 - Social History Does the pt smoke?: No Smoking Status: Never smoker Does the pt drink ETOH?: Yes Does the pt have substance abuse?: No - Family History Family history: reports: Non contributory - Immunizations Immunizations: TDAP current <10years PD ED PE NORMAL - Vitals Vital signs reviewed: Yes - General General: Alert and oriented X 3, No acute distress (Save she appears anxious.) - HEENT HEENT: PERRL, EOMI - Neck Neck: Supple, no meningeal sign, No bony TTP - Cardiac Cardiac: RRR, No murmur - Respiratory Respiratory: No respiratory distress, Clear bilaterally - Abdomen Abdomen: Normal bowel sounds, Soft, Other (Quite tender in the left lower quadrant with some guarding) - Back Back: No CVA TTP, No spinal TTP - Derm Derm: Normal color, Warm and dry - Extremities Extremities: No edema, No calf tenderness / cord - Neuro Neuro: Alert and oriented X 3, Normal speech Results - Vitals Vitals: Vital Signs - 24 hr 12/14/20 12/14/20 12/14/20 15:19 17:23 18:25 Temperature 36.5 C 36.4 C L Heart Rate 69 59 L 57 L Respiratory 14 16 16 Rate Blood Pressure 160/127 H 176/89 H 136/58 H O2 Saturation 96 98 97 Oxygen O2 Source Room air - EKG (time done) 1546 Rate: Rate (enter#) (64) Rhythm: NSR (w pacs) [place]: Normal Intervals: Normal TN QRS: Normal Ischemia: Normal ST segments Computer interpretation: Disagree with computer (TN not short) - Labs Labs: Laboratory Tests 12/14/20 12/14/20 12/14/20 15:43 15:43 15:43 WBC 6.0 RBC 4.25 Hgb 13.7 Hct 41.7 MCV 98.1 MCH 32.2 H MCHC 32.9 RDW 12.4 Plt Count 233 MPV 9.9 Neut # (Auto) 3.8 Lymph # (Auto) 1.3 L [place] # (Auto) 0.6 Eos # (Auto) 0.1 Baso # (Auto) 0.1 Absolute Nucleated RBC 0.00 Nucleated RBC % 0.0 Sodium 141 Potassium 3.7 Chloride 102 Carbon Dioxide 27 Anion Gap 12.0 BUN 28 H Creatinine 1.2 H Estimated GFR (MDRD) 43 L Glucose 105 H Calcium 9.7 Total Bilirubin 1.0 AST 20 ALT 14 Alkaline Phosphatase 97 Troponin I High Sens 12.8 B-Natriuretic Peptide Total Protein 7.1 Albumin 4.2 Globulin 2.9 Albumin/Globulin Ratio 1.4 Lipase 34 12/14/20 15:43 WBC RBC Hgb Hct MCV MCH MCHC RDW Plt Count MPV Neut # (Auto) Lymph # (Auto) [place] # (Auto) Eos # (Auto) Baso # (Auto) Absolute Nucleated RBC Nucleated RBC % Sodium Potassium Chloride Carbon Dioxide Anion Gap BUN Creatinine Estimated GFR (MDRD) Glucose Calcium Total Bilirubin AST ALT Alkaline Phosphatase Troponin I High Sens B-Natriuretic Peptide 70 Total Protein Albumin Globulin Albumin/Globulin Ratio Lipase - Rads (name of study) Single view chest x-ray demonstrates no acute disease. She does have atherosclerosis in the aortic arch. Radiology: EMP read contemporaneously PD MEDICAL DECISION MAKING - ED course ED course: This is a shawna 85-year-old woman presents with central abdominal pain and shortness of breath. No acute findings on work-up here. Baseline renal insufficiency. Diverticula and other incidental findings on CT of the belly. Chest x-ray is clear. No evidence of cardiac compromise. Nothing in the history or physical to suggest PE. There does seem to be an overlay of anxiety on top of some uncontrolled blood pressure. She states that she is taking propranolol once a day and I think this is an excellent choice for her given the anxiety and blood pressure. I do not see this in her medication list or in the external pharmacy summary but I think she should probably go up on the dose so will change to twice daily presuming that she is on 10 mg. On repeat exam exam prior to discharge her exam was nontender. Departure - Departure Disposition: 01 Home, Self Care Clinical Impression: Abdominal pain Qualifiers: Abdominal location: generalized Qualified Code(s): R10.84 - Generalized abdominal pain Dyspnea Qualifiers: Dyspnea type: shortness of breath Qualified Code(s): R06.02 - Shortness of breath Condition: Good Record reviewed to determine appropriate education?: Yes Instructions: ED Dyspnea Shortness of Breath Prescriptions: Propranolol [Inderal] 10 mg PO BID #60 tablet Comments: As discussed, we did a CAT scan of your belly today, only endings including a splenic cyst and diverticulosis. Your chest x-ray is clear. Labs and EKG show no evidence of acute cardiac issue or congestive heart failure. Pay close attention your symptoms and return for new or worsening symptoms. Follow-up with your primary care physician within the week for recheck. I am increasing your propranolol to twice a day which I think will help with your blood pressure and your breathing. Discharge Date/Time: 12/14/20 18:26
[2020-12-14 15:48] LABS: BASOPHILS # (AUTO) 0.1 10^3/uL (0.0-0.1); BASOPHILS % (AUTO) 1.2 %; EOSINOPHILS # (AUTO) 0.1 10^3/uL (0.0-0.7); HCT - HEMATOCRIT 41.7 % (37.0-47.0); HGB - HEMOGLOBIN 13.7 g/dL (12.0-16.0); LYMPHOCYTES # (AUTO) 1.3 10^3/uL (1.5-3.5); LYMPHOCYTES % (AUTO) 22.5 %; MEAN CORPUSCULAR HEMOGLOBIN 32.2 pg (27.0-31.0); MEAN CORPUSCULAR HGB CONC 32.9 g/dL (32.0-36.0); MEAN CORPUSCULAR VOLUME 98.1 fL (81.0-99.0); MEAN PLATELET VOLUME 9.9 fL (7.9-10.8); MONOCYTES # (AUTO) 0.6 10^3/uL (0.0-1.0); MONOCYTES % (AUTO) 10.6 %; NEUTROPHILS # (AUTO) 3.8 10^3/uL (1.5-6.6); NEUTROPHILS % (AUTO) 64.4 %; PLT - PLATELET COUNT 233 10^3/uL (130-450); RED BLOOD COUNT 4.25 10^6/uL (4.20-5.40); RED CELL DISTRIBUTION WIDTH 12.4 % (12.0-15.0)
[2020-12-14] MEDS ORDERED: IOVERSOL 320 100 ML VIAL IVP ONE ×2 (15:49→18:14)
[2020-12-14 16:02] LABS: ALBUMIN 4.2 g/dL (3.2-5.5); ALBUMIN/GLOBULIN RATIO 1.4 (1.0-2.2); CALCIUM 9.7 mg/dL (8.5-10.3); CREATININE 1.2 mg/dL (0.4-1.0); POTASSIUM 3.7 mmol/L (3.5-5.0); TOTAL PROTEIN 7.1 g/dL (6.7-8.2)
--- NOTE | 2020-12-14 16:14 | XRAY Report ---
PROCEDURE: Chest 1 View X-Ray INDICATIONS: dyspnea TECHNIQUE: One view of the chest was acquired. COMPARISON: CT abdomen and pelvis dated 07/31/2019 FINDINGS: Surgical changes and devices: None. Lungs and pleura: No pleural effusions or pneumothorax. Lungs are clear. Mediastinum: Mediastinal contours appear normal. Heart size is normal. Atherosclerotic calcificati on within the aortic arch.; Bones and chest wall: No suspicious bony lesions. Calcification overlying the left upper quadrant co nsistent with peripherally calcified splenic cyst. IMPRESSION: No evidence of an acute cardiopulmonary abnormality. Reviewed by: Ryan Howard DO on 12/14/2020 3:13 PM ANDRE Approved by: Ryan Howard DO on 12/14/2020 3:13 PM ANDRE Station ID: [id number]
--- NOTE | 2020-12-14 17:52 | CT Report ---
PROCEDURE: Abdomen/Pelvis W INDICATIONS: IV only, LLQ pain CONTRAST: IV CONTRAST: Optiray 320 ml: 100 PO CONTRAST: *NO PO CONTRAST TECHNIQUE: After the administration of nonionic iodinated contrast, 5 mm thick sections acquired from the diaphr agms to the symphysis. 5 mm thick coronal and sagittal reformats were acquired. For radiation dose reduction, the following was used: automated exposure control, adjustment of mA and/or kV according to patient size. COMPARISON: 07/31/2019 FINDINGS: Image quality: Excellent. ABDOMEN: Lung bases: Lung bases are clear. Heart size is normal. Small hiatal hernia. Solid organs: Liver is normal in size and enhancement. Spleen is normal in size. Unchanged peripheral ly calcified splenic cyst which is benign in appearance. Gallbladder is surgically absent Biliary sy stem is non dilated and surgical status. Pancreas enhances normally. No adrenal nodules. Kidneys de monstrate normal size and enhancement, without hydronephrosis. Peritoneum and bowel: Bowel loops demonstrate normal wall thickness and caliber. Sigmoid colon diver ticula without evidence of diverticulitis. No free fluid or air. Nodes and vessels: No retroperitoneal or mesenteric adenopathy by size criteria. Aorta and inferior vena cava are normal in size. Miscellaneous: No ventral hernias. PELVIS: Genitourinary: Bladder wall thickness is normal. Miscellaneous: No inguinal hernias or adenopathy. Bones: No suspicious bony lesions. Advanced degenerative changes of the lumbar spine with multiple levels of grade 1 listhesis. [id number] degenerative changes of the hips. No acute osseous abno rmality or aggressive appearing osseous lesion. No vertebral body compression fractures. IMPRESSION: No evidence of an acute intra-abdominal/pelvic abnormality. Diverticulosis. Additional findings as above. Reviewed by: Ryan Howard DO on 12/14/2020 4:50 PM ANDRE Approved by: Ryan Howard DO on 12/14/2020 4:50 PM [facility] Station ID: [id number]
[2020-12-14 18:27] VITALS: BP 136/58
== END 2020-12-14 18:26 | disposition home or self-care (01) ==
LOC: EDUNIT# → ED 15:10
DX: R10.84 Generalized abdominal pain (principal); R06.02 Shortness of breath; I10 Essential (primary) hypertension; F41.9 Anxiety disorder, unspecified
CPT/HCPCS: 36415; 71045; 74177; 80053; 83690; 83880; 84484; 85025; 93005; 99284; Q9967

== ENCOUNTER 2021-05-12 15:50 | Outpatient (CLI) | payer MEDICARE, OTHER ==
[2021-05-12 18:11] LABS: CREATININE 1.2 mg/dL (0.4-1.0); POTASSIUM 4.1 mmol/L (3.5-5.0)
== END 2021-05-12 15:51 | disposition home or self-care (01) ==
LOC: LAB.N 15:50
PROVIDERS: ATTEND Family Medicine
DX: E87.6 Hypokalemia (principal)
CPT/HCPCS: 36415; 80048

== ENCOUNTER 2021-11-20 16:28 | Outpatient (CLI) | payer MEDICARE, OTHER ==
[2021-11-20 21:08] LABS: BASOPHILS % (AUTO) 0.6 %; EOSINOPHILS # (AUTO) 0.1 10^3/uL (0.0-0.7); EOSINOPHILS % (AUTO) 1.8 %; HCT - HEMATOCRIT 38.6 % (37.0-47.0); HGB - HEMOGLOBIN 12.8 g/dL (12.0-16.0); LYMPHOCYTES # (AUTO) 2.3 10^3/uL (1.5-3.5); LYMPHOCYTES % (AUTO) 34.7 %; MEAN CORPUSCULAR HEMOGLOBIN 32.1 pg (27.0-31.0); MEAN CORPUSCULAR HGB CONC 33.2 g/dL (32.0-36.0); MEAN CORPUSCULAR VOLUME 96.7 fL (81.0-99.0); MEAN PLATELET VOLUME 9.7 fL (7.9-10.8); MONOCYTES # (AUTO) 0.6 10^3/uL (0.0-1.0); NEUTROPHILS # (AUTO) 3.6 10^3/uL (1.5-6.6); NEUTROPHILS % (AUTO) 53.6 %; PLT - PLATELET COUNT 265 10^3/uL (130-450); RED BLOOD COUNT 3.99 10^6/uL (4.20-5.40); RED CELL DISTRIBUTION WIDTH 12.3 % (12.0-15.0); WHITE BLOOD COUNT 6.7 x10^3/uL (4.8-10.8)
[2021-11-20 21:31] LABS: ALBUMIN 3.8 g/dL (3.2-5.5); ALBUMIN/GLOBULIN RATIO 1.4 (1.0-2.2); BILIRUBIN,TOTAL 0.5 mg/dL (0.2-1.0); CALCIUM 8.6 mg/dL (8.5-10.3); CREATININE 1.2 mg/dL (0.4-1.0); POTASSIUM 4.4 mmol/L (3.5-5.0); TOTAL PROTEIN 6.6 g/dL (6.7-8.2)
[2021-11-20 21:49] LABS: THYROID STIMULATING HORMONE 4.57 uIU/mL (0.34-5.60)
== END 2021-11-20 16:29 | disposition home or self-care (01) ==
LOC: LAB.N 16:28
PROVIDERS: ATTEND Nurse Practitioner
DX: R53.83 Other fatigue (principal)
CPT/HCPCS: 36415; 80053; 82607; 84443; 85025

== ENCOUNTER 2022-02-02 15:41 | Outpatient (CLI) | payer MEDICARE, OTHER | END 2022-02-02 15:42 | disposition EMS.NT | LOC: EMS 15:41 | DX: Z03.89 Encounter for observation for other suspected diseases and conditions ruled out (principal) ==

== ENCOUNTER 2022-02-03 08:00 | Outpatient (CLI) | payer MEDICARE, OTHER ==
[2022-02-03 17:53] LABS: BILIRUBIN,URINE NEGATIVE (NEGATIVE); GLUCOSE, URINE (UA) NEGATIVE (NEGATIVE); KETONES,URINE (UA) TRACE mg/dL (NEGATIVE); LEUKOCYTE ESTERASE, URINE NEGATIVE (NEGATIVE); NITRITE,URINE NEGATIVE (NEGATIVE); OCCULT BLOOD,URINE TRACE-INTA (NEGATIVE); PH,URINE 5.5 PH (5.0-7.5); PROTEIN,URINE 30 mg/dL (NEGATIVE); UROBILINOGEN,URINE 0.2 (NORMAL) E.U./dL (NORMAL)
[2022-02-03 17:58] LABS: CLARITY,URINE CLOUDY (CLEAR)
[2022-02-03 18:07] LABS: BACTERIA,URINE Moderate /HPF (None Seen); RBC,URINE 0-5 /HPF (0-5); SQUAMOUS EPITHELIAL CELL,UR MANY Squamous (<= Few)
[2022-02-03 18:08] LABS: AMORPHOUS SEDIMENT,UR Marked /LPF
== END 2022-02-03 23:59 | disposition home or self-care (01) ==
LOC: LAB.N 08:00
PROVIDERS: ATTEND Physician Assistant
DX: R31.0 Gross hematuria (principal)
CPT/HCPCS: 81001; 87086

== ENCOUNTER 2022-02-05 16:09 | Outpatient (CLI) | payer MEDICARE, OTHER | END 2022-02-05 23:59 | disposition critical access hospital (66) | LOC: EMS 16:09 | DX: S01.81XA Laceration without foreign body of other part of head, initial encounter (principal); W01.0XXA Fall on same level from slipping, tripping and stumbling without subsequent striking against object, initial encounter; Y92.000 Kitchen of unspecified non-institutional (private) residence as the place of occurrence of the external cause | CPT/HCPCS: A0425; A0429 ==

== ENCOUNTER 2022-02-05 16:33 | Emergency (ER) | payer MEDICARE, OTHER ==
--- NOTE | 2022-02-05 16:47 | ED Physician Documentation ---
History of Present Illness - Stated complaint Stated Complaint: GLF/HEAD LAC - Chief complaint Chief Complaint: Trauma Hd/Nk - Additonal information Additional information: 86-year-old female presents to the emergency department for evaluation of a forehead hematoma after ground-level fall. She was at home with her daughter when she got up from her recliner and her foot got caught in the carpeting she fell forward striking her head on the carpet but did not lose consciousness. Denies anticoagulation. EMS was summoned to the house that she was fearful to get up on her own. On presentation to the emergency department she has full recall of the events at home. She is denying any chest pain or shortness of air. She presents with a large hematoma just above her left eyebrow. No obvious focal neurodeficits. 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 History obtained from patient and ancillary history through EMS Review of Systems Constitutional: denies: Fever, Chills Eyes: reports: Reviewed and negative Nose: reports: Rhinorrhea / runny nose Throat: reports: Reviewed and negative Cardiac: reports: Reviewed and negative Respiratory: reports: Reviewed and negative GI: reports: Reviewed and negative : reports: Reviewed and negative Skin: reports: Abrasion (s) (Skin tear forehead) Musculoskeletal: reports: Neck pain Neurologic: reports: Headache, Head injury. 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 - Present Medications Home Medications: Ambulatory Orders Medication Instructions Recorded Confirmed Aspirin 325 mg PO DAILY 03/25/17 Cholecalciferol (Vitamin D3) 3,000 03/25/17 [Vitamin D3] Diclofenac Sodium Dr [Voltaren] 75 mg PO BID 03/25/17 FLUoxetine [PROzac] 40 mg PO DAILY 03/25/17 Levothyroxine [Synthroid] 88 mcg PO DAILY 03/25/17 Losartan [Cozaar] 50 mg PO DAILY 03/25/17 Omeprazole [PriLOSEC] 20 mg PO DAILY 03/25/17 Propranolol [Inderal] 10 mg PO BID #60 tablet 12/14/20 - Allergies Allergies/Adverse Reactions: Allergies Allergy/AdvReac Type Severity Reaction Status Date / Time No Known Drug Allergies Allergy Verified 02/05/22 16:43 - Social History Does the pt smoke?: No Smoking Status: Never smoker Does the pt drink ETOH?: Yes Does the pt have substance abuse?: No - Immunizations Immunizations: TDAP current <10years PD ED PE NORMAL - General General: Alert and oriented X 3, No acute distress, Well developed/nourished - HEENT HEENT: EOMI, Ears normal (Negative for raccoon eyes and morel sign), Moist mucous membranes. 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 No associated fracture is seen. No intracranial hemorrhage is seen. No significant intercranial abnormality is seen.) cervical CT Radiology: Final report received (No acute fractures identified.) PD MEDICAL DECISION MAKING - ED course Complexity details: reviewed results, re-evaluated patient, considered differential, d/w patient ED course: 86-year-old female presents to the emergency department for evaluation of a left forehead hematoma after ground-level fall at home when she tripped on the carpet. There was no loss of consciousness. She is not anticoagulated. On presentation she appears remarkably well sparing the hematoma on her forehead. She has no focal neurodeficits. Her vital signs are appropriate for age. We did however perform a CT of the head and neck given the mechanism without findings of intracranial hemorrhage or cervical spine fracture. Chest x-ray is without acute findings to suggest rib fracture or pneumothorax. The hematoma to her forehead does have a superficial abrasion/skin tear which is not amenable to primary closure. I have made the recommendation for bacitracin antibiotic ointment. Daughter is at the bedside. Patient has been able to ambulate without assistance and otherwise is stable discharged home in stable condition. Emergent return precautions discussed for worsening symptoms Departure - Departure Disposition: Home, Self Care Clinical Impression: Ground-level fall Traumatic hematoma of forehead Qualifiers: Encounter type: initial encounter Qualified Code(s): S00.83XA - Contusion of other part of head, initial encounter Forehead abrasion Qualifiers: Encounter type: initial encounter Qualified Code(s): S00.81XA - Abrasion of other part of head, initial encounter Condition: Stable Record reviewed to determine appropriate education?: Yes Instructions: ED Hematoma Comments: Zachariah came to the emergency department today after she tripped at home and fell striking her head on the carpet. She does have a large hematoma to her forehead. The CT that we did of the head neck as well as an x-ray of her chest did not show any traumatic findings to suggest bruising or bleeding in the head or fractures of the spine or skull. Chest x-ray is normal. The hematoma on her forehead will take a few weeks to resolve. The abrasion that she has is not something that we can close primarily with sutures. I recommend that you just be gently cleanse with warm soap and water each day, apply any antibiotic ointment such as bacitracin or triple antibiotic and then a simple bandage. Return to the emergency department if you develop any worsening symptoms, have uncontrolled vomiting, slurred speech, facial droop or any concerns of chest pain or shortness of air.
[2022-02-05] MEDS ORDERED: BACITRACIN ZINC OINT 1 PACKET TOP STA (17:37)
--- NOTE | 2022-02-05 17:42 | CT Report ---
PROCEDURE: HEAD WO INDICATIONS: GLF; forehad hematoma TECHNIQUE: Noncontrast 4.5 mm thick angled axial sections acquired from the foramen magnum to the vertex. For r adiation dose reduction, the following was used: automated exposure control, adjustment of mA and/or kV according to patient size. COMPARISON: 09/01/2017. Correlation is made with the accompanying cervical spine CT, 02/05/2022. FINDINGS: Image quality: Excellent. CSF spaces: Basal cisterns are patent. No extra-axial fluid collections. Ventricles are normal in size and shape. Brain: No midline shift. No intracranial masses or hemorrhage. Moran-white matter interface is norm al. Age-appropriate brain parenchymal volume loss and chronic small vessel ischemic change can be se en. Skull and face: There is a left forehead hematoma seen. No associated calvarial fracture is seen. Ca lvarium and visualized facial bones are intact, without suspicious lesions. Sinuses: Visualized sinuses and mastoids are clear. IMPRESSION: There is a left forehead hematoma. No associated fracture is seen. No intracranial hemorrhage is seen. No significant intracranial abnormality is seen. Age-appropriate brain parenchymal volume loss and chronic small vessel ischemic change can be seen. Reviewed by: Ulices Florian MD on 02/05/2022 4:40 PM [facility] Approved by: Ulices Florian MD on 02/05/2022 4:40 PM [facility] Station ID: [id number]
--- NOTE | 2022-02-05 17:44 | CT Report ---
PROCEDURE: CERVICAL SPINE WO INDICATIONS: GLD; forehead heamtoma TECHNIQUE: Noncontrast 3 mm thick sections acquired from the skull base to the T4 level. Sagittal and coronal r eformats were then constructed. For radiation dose reduction, the following was used: automated exp osure control, adjustment of mA and/or kV according to patient size. COMPARISON: Correlation is made with the accompanying head CT, 02/05/2022. FINDINGS: Image quality: Excellent. Bones: No fractures or dislocations. Visualized superior ribs are intact. Generalized moderate degenerative changes are seen. Cervicothoracic sclerotic curvature is partially seen. Soft tissues: Prevertebral soft tissues are normal in thickness. No paravertebral hematomas. No ap ical pneumothoraces. Atherosclerotic calcification is seen. IMPRESSION: No acute fracture is identified. Reviewed by: Ulices Florian MD on 02/05/2022 4:42 PM [place] Approved by: Ulices Florian MD on 02/05/2022 4:42 PM [facility] Station ID: [id number]
--- NOTE | 2022-02-05 17:44 | XRAY Report ---
PROCEDURE: Chest 1 View X-Ray INDICATIONS: chest pain TECHNIQUE: One view of the chest was acquired. COMPARISON: Correlation is made with the accompanying head CT and cervical spine CT, 02/05/2022. FINDINGS: Surgical changes and devices: None. Lungs and pleura: No pleural effusions or pneumothorax. Lungs are clear. Mediastinum: Mediastinal contours appear normal. Heart size is normal. Bones and chest wall: No suspicious bony lesions. Age-appropriate degenerative changes are seen. Mi ld dextroconvex scoliotic curvature is seen. No brittany displaced fractures are seen. Overlying soft t issues appear unremarkable. A rounded soft tissue calcification can be seen overlying the left upper quadrant of the abdomen. IMPRESSION: No brittany acute posterior leg abnormality can be seen. No focal bony abnormality is seen. If there is strong clinical concern for a post traumatic abnormality that is not seen on this plain f ilm study, then please consider a dedicated chest CT with IV contrast for further evaluation. Reviewed by: Ulices Florian MD on 02/05/2022 4:43 PM AKST Approved by: Ulices Florian MD on 02/05/2022 4:43 PM AKST Station ID: [id number]
[2022-02-05 18:47] VITALS: BP 145/89
== END 2022-02-05 18:00 | disposition home or self-care (01) ==
LOC: EDUNIT# → ED 16:33
DX: S00.83XA Contusion of other part of head, initial encounter (principal); S00.81XA Abrasion of other part of head, initial encounter; W01.0XXA Fall on same level from slipping, tripping and stumbling without subsequent striking against object, initial encounter; Y93.89 Activity, other specified; Y92.016 Swimming-pool in single-family (private) house or garden as the place of occurrence of the external cause
CPT/HCPCS: 70450; 71045; 72125; 99282; 99284; A9270

== ENCOUNTER 2022-06-14 08:00 | Outpatient (CLI) | payer MEDICARE, OTHER | END 2022-06-14 23:59 | disposition home or self-care (01) | LOC: LAB 08:00 | PROVIDERS: ATTEND Physician Assistant | DX: N75.1 Abscess of Bartholin's gland (principal) | CPT/HCPCS: 87070; 87205 ==

== ENCOUNTER 2022-08-21 09:37 | Outpatient (CLI) | payer MEDICARE, OTHER ==
[2022-08-21] MEDS ORDERED: iohexoL-300 100 ML VIAL ONE (09:46)
[2022-08-21] MEDS ORDERED: DIATRIZOATE MEGLU/DIATRIZO SOD 30 ML BOTTLE PO ONE ×2 (09:46→11:16)
[2022-08-21 10:01] LABS: BASOPHILS # (AUTO) 0.1 10^3/uL (0.0-0.1); BASOPHILS % (AUTO) 1.1 %; EOSINOPHILS # (AUTO) 0.2 10^3/uL (0.0-0.7); EOSINOPHILS % (AUTO) 3.2 %; HCT - HEMATOCRIT 38.3 % (37.0-47.0); HGB - HEMOGLOBIN 12.3 g/dL (12.0-16.0); LYMPHOCYTES # (AUTO) 1.6 10^3/uL (1.5-3.5); MEAN CORPUSCULAR HEMOGLOBIN 31.5 pg (27.0-31.0); MEAN CORPUSCULAR HGB CONC 32.1 g/dL (32.0-36.0); MEAN PLATELET VOLUME 9.6 fL (7.9-10.8); MONOCYTES # (AUTO) 0.5 10^3/uL (0.0-1.0); MONOCYTES % (AUTO) 10.6 %; NEUTROPHILS # (AUTO) 2.4 10^3/uL (1.5-6.6); NEUTROPHILS % (AUTO) 50.7 %; PLT - PLATELET COUNT 178 10^3/uL (130-450); RED BLOOD COUNT 3.91 10^6/uL (4.20-5.40); RED CELL DISTRIBUTION WIDTH 12.4 % (12.0-15.0); WHITE BLOOD COUNT 4.7 x10^3/uL (4.8-10.8)
[2022-08-21 10:12] LABS: ALBUMIN/GLOBULIN RATIO 1.4 (1.0-2.2); BILIRUBIN,TOTAL 0.7 mg/dL (0.2-1.0); CALCIUM 8.9 mg/dL (8.5-10.3); CREATININE 1.4 mg/dL (0.4-1.0); POTASSIUM 4.1 mmol/L (3.5-5.0); TOTAL PROTEIN 6.9 g/dL (6.7-8.2)
[2022-08-21 10:29] LABS: THYROID STIMULATING HORMONE 9.8 uIU/mL (0.34-5.60)
[2022-08-21 11:04] LABS: FREE T4 (FREE THYROXINE) 0.89 ng/dL (0.58-1.64)
[2022-08-21] MEDS ORDERED: iohexoL-300 100 ML VIAL IVP ONE (11:15)
--- NOTE | 2022-08-21 13:53 | CT Report ---
PROCEDURE: ABDOMEN/PELVIS W INDICATIONS: LLQ ABD PAIN CONTRAST: 100ml omni 300 TECHNIQUE: After the administration of oral and intravenous contrast, 5 mm thick sections acquired from the diap hragms to the symphysis. 5 mm thick coronal and sagittal reformats were acquired. For radiation dos e reduction, the following was used: automated exposure control, adjustment of mA and/or kV accordin g to patient size. COMPARISON: 09/07/2008. FINDINGS: Image quality: Excellent. ABDOMEN: Lung bases: Lung bases are clear. Heart size is normal. Solid organs: Liver and spleen are normal in size and enhancement. Again noted is a peripherally kinjal cified splenic cyst measuring 4.3 cm in diameter with peripheral calcifications, unchanged. Gallbladd er is surgically absent Biliary system is non dilated. Pancreas enhances normally. No adrenal nodu les. Kidneys demonstrate normal size and enhancement, without hydronephrosis. Peritoneum and bowel: Bowel loops demonstrate normal wall thickness and caliber. No free fluid or a ir. Nodes and vessels: No retroperitoneal or mesenteric adenopathy by size criteria. Aorta and inferior vena cava are normal in size. Miscellaneous: No ventral hernias. PELVIS: Genitourinary: Bladder wall thickness is normal. Miscellaneous: No inguinal hernias or adenopathy. Uterus is surgically absent Bones: No suspicious bony lesions. No vertebral body compression fractures. Canal stenosis is at l east moderate at L3-L4 and severe at L4-L5. Exuberant multilevel facet arthropathy. IMPRESSION: 1. No evidence acute abdominal process. 2. Unchanged benign splenic cyst. 3. Prior hysterectomy and cholecystectomy. 4. Sigmoid diverticulosis. 5. Canal stenosis is at least moderate at L3-L4 and severe at L4-L5. Reviewed by: Clint Her on 08/21/2022 12:52 PM ANDRE Approved by: Clint Her on 08/21/2022 12:52 PM ANDRE Station ID: [id number]
== END 2022-08-21 09:38 | disposition home or self-care (01) ==
LOC: LAB 09:37
PROVIDERS: ATTEND Nurse Practitioner Family
DX: R10.32 Left lower quadrant pain (principal); I10 Essential (primary) hypertension; E03.9 Hypothyroidism, unspecified; G89.4 Chronic pain syndrome; K59.09 Other constipation; D73.4 Cyst of spleen; K57.30 Diverticulosis of large intestine without perforation or abscess without bleeding; M48.061 Spinal stenosis, lumbar region without neurogenic claudication; Z90.49 Acquired absence of other specified parts of digestive tract; Z90.710 Acquired absence of both cervix and uterus
CPT/HCPCS: 36415; 74177; 80053; 84439; 84443; 85025; Q9963; Q9967; 82565

== ENCOUNTER 2022-10-01 14:03 | Outpatient (CLI) | payer MEDICARE, OTHER | END 2022-10-01 14:04 | disposition home or self-care (01) | LOC: MAC.INF 14:03 | PROVIDERS: ATTEND Family Medicine | DX: I49.9 Cardiac arrhythmia, unspecified (principal) | CPT/HCPCS: 93242 ==